=== PATIENT | female | born 1960 | race African-American/Black ===

== ENCOUNTER → 2018-10-12 15:02 | Outpatient (CLI) | payer MEDICAID, SELFPAY ==
[2018-10-12 14:49] VITALS: BMI 38.9
--- NOTE | 2018-10-12 15:07 | RAD_ITS ---
STUDY: X-RAY - PELVIS AND LEFT HIP REASON FOR EXAM: Female, 58 years old. Chronic pain TECHNIQUE: 3 views of the pelvis and hip. COMPARISON: None. FINDINGS: The patient is status post right hip arthroplasty. There is no evidence of fracture or dislocation in the pelvis or left hip. There is severe degenerative changes in the left hip. RAD/HIP, UNI W/ Pelvis 2-3 Views IMPRESSION: No fracture or dislocation in the pelvis or left hip. Severe degenerative changes in the left hip. Electronically Signed: Bobo Mckinney, at 22:39 EDT Tel , Service support ,
--- NOTE | 2018-10-12 15:07 | RAD_ITS ---
STUDY: X-RAY - LUMBAR SPINE REASON FOR EXAM: Female, 58 years old. Back pain TECHNIQUE: 5 view(s) of the lumbar spine were obtained. COMPARISON: None FINDINGS: There is no evidence of fracture or dislocation in the lumbar spine. The vertebral body heights are well-maintained. There are vtej-lw-[id number] multilevel degenerative changes which are most pronounced at L5/S1. There are atherosclerotic calcific lesion is noted in the aorta. RAD/L/S Spine Min 4 Views IMPRESSION: No fracture or dislocation in the lumbar spine. [id number]-[id number] degenerative changes which are most pronounced at L5/S1. Atherosclerosis. Electronically Signed: Bobo Mckinney, at 22:45 EDT Tel , Service support ,
== END ==
PROVIDERS: Family Provider Internal Medicine; PCP Internal Medicine; Referring Provider Orthopaedic Surgery; Visit Provider Orthopaedic Surgery
DX: M25.552 Pain in left hip (principal); M54.5 Low back pain
CPT/HCPCS: 72110; 73502